=== PATIENT | female | born 1990 | race Caucasian/White ===

== ENCOUNTER 2016-08-27 15:01 | Emergency (ER) | payer BC ==
[~2016-08-27] VITALS: Ht 162.6 cm; Wt 77.2 kg
[~2016-08-27 15:01] MED LIST: ADDE20 PO; AMIT10 PO; ASPITAB PO; DONE10TA7 PO; FOLI1TAB6; FOLI5CAP; GABA300C5 PO; MELO15; MOBI15TA PO; NAPR-576 PO; NAPR500T PO; PROP20TA3 PO; SEASTAB2 PO; TOPA100T11 PO; TOPI25CA PO; VITA250L PO; [UNRECOGNIZED DRUG - CODE] SL
[2016-08-27 15:03] VITALS: BP 126/75; PULSE 99; RESP 18; TEMP 97.9; O2SAT 99
[2016-08-27 16:37] VITALS: BP 125/72; PULSE 90; RESP 18; O2SAT 100
[2016-08-27] MEDS ORDERED: SODIUM CHLOR 0.9% 1000 ML INJ 1,000 ML IV SCH (16:51)
--- NOTE | 2016-08-27 16:53 | PD ---
HPI Chief Complaint: Abdominal Pain Time Seen by Provider: 16:47 Travel History International Travel<30 days: No Contact w/Intl Traveler<30days: No Traveled to known affect area: No History of Present Illness HPI 26 year old female presents for evaluation of abdominal pain. Symptoms started 10 days ago. The pain is a sharp stabbing pain that started in the periumbilical region, now feels generalized. Aggravated by eating and drinking. No alleviating factors. She has had some nausea. She reports 3 days ago she had some bright red blood per rectum when wiping after having a bowel movement. Denies any fevers or chills, flank pain, dysuria, vaginal bleeding or discharge. She has a history of cholecystectomy. She was seen today at an urgent care center and referred here for further evaluation. No other complaints. PFSH Past Medical History Asthma: Yes Depression: Yes Cancer: No Cardiovascular Problems: Yes Diabetes: No Endocrine: No Genitourinary: No Hepatitis: No Hiatal Hernia: No Immune Disorder: No Musculoskeletal: No Neurologic: Yes (POSIBLE MS) Psychiatric: No Reproductive: No Respiratory: No Immunizations Current: No Migraines: Yes Seizures: Yes (EPILEPSY) Thyroid Disease: No ?: Not LMP: 04/27/16 Past Surgical History Abdominal Surgery: No AICD: No Cardiac Surgery: No Section: Yes Cholecystectomy: Yes Ear Surgery: No Endocrine Surgery: No Eye Surgery: No Gynecologic Surgery: Yes Joint Replacement: No Oral Surgery: Yes (WISDOMS TEETH) Pacemaker: No Thoracic Surgery: No Other Surgery: Yes (BLADDER) Social History Alcohol Use: No Tobacco Use: No Substance Use: No Allergies-Medications (Allergen,Severity, Reaction): Coded Allergies: Dilantin (Verified Allergy, Severe, RASH, 08/27/16) Trileptal (Verified Allergy, Severe, RASH, 08/27/16) Ambien (Verified Allergy, Mild, 08/27/16) Reported Meds & Prescriptions Reported Meds & Active Scripts Active Phenergan (Promethazine HCl) 25 Mg Tablet 25 Mg PO Q6H PRN Bentyl (Dicyclomine HCl) 10 Mg Cap 10 Mg PO TID PRN Reported Adderall (Amphetamine-Dextroamphetamine) 20 Mg Tab 20 Mg PO BID Avoid late evening doses. Space doses at least 4 to 6 hours if more than once/day dosing. Donepezil 10 Mg Tab 10 Mg PO HS Propranolol (Propranolol HCl) 20 Mg Tab 20 Mg PO DAILY Topamax (Topiramate) 100 Mg Tab 100 Mg PO DAILY Mobic (Meloxicam) 15 Mg Tab 15 Mg PO DAILY Folic Acid 1 Mg Tablet B-12 Microlozenge (Cyanocobalamin) 500 Mcg Subl 500 Mcg SL DAILY Naproxen 500 Mg Tab 500 Mg PO BID Gabapentin 300 Mg Cap 300 Mg PO TID Review of Systems Except as stated in HPI: all other systems reviewed are Neg Physical Exam Narrative GENERAL: Well-developed well-nourished female in no acute distress SKIN: Warm and dry. HEAD: Atraumatic. Normocephalic. EYES: Pupils equal and round. No scleral icterus. No injection or drainage. ENT: No nasal bleeding or discharge. Mucous membranes pink and moist. NECK: Trachea midline. No JVD. CARDIOVASCULAR: Regular rate and rhythm. No murmur appreciated. RESPIRATORY: No accessory muscle use. Clear to auscultation. Breath sounds equal bilaterally. GASTROINTESTINAL: Abdomen soft, generalized tenderness to palpation without guarding. MUSCULOSKELETAL: No obvious deformities. NEUROLOGICAL: Awake and alert. No obvious cranial nerve deficits. Motor grossly within normal limits. Normal speech. Data Data Last Documented VS Vital Signs Date Time Temp Pulse Resp B/P Pulse Ox O2 Delivery O2 Flow Rate FiO2 08/27/16 16:37 90 18 125/72 100 Room Air 08/27/16 15:03 97.9 Orders Urinalysis - C+S If Indicated (08/27/16 16:19) Ed Urine Pregnancytest Poc (08/27/16 16:19) Complete Blood Count With Diff (08/27/16 16:51) Comprehensive Metabolic Panel (08/27/16 16:51) Lipase (08/27/16 16:51) Ct Abd/Pel W Iv Contrast(Rout) (08/27/16 16:51) Morphine Inj (Morphine Inj) (08/27/16 17:00) Ondansetron Inj (Zofran Inj) (08/27/16 17:00) Sodium Chlor 0.9% 1000 Ml Inj (Ns 1000 M (08/27/16 16:51) Iohexol 350 Inj (Omnipaque 350 Inj) (08/27/16 19:06) Dicyclomine Inj (Bentyl Inj) (08/27/16 19:30) Morphine Inj (Morphine Inj) (08/27/16 19:30) Al-Mag Hy-Si 40-40-4 Mg/Ml Liq (Mag-Al P (08/27/16 19:45) Lidocaine 2% Viscous (Xylocaine 2% Visco (08/27/16 19:45) Pantoprazole (Protonix) (08/27/16 19:45) Labs Laboratory Tests Test 08/27/16 08/27/16 16:18 17:30 Urine Color LIGHT-YELLOW Urine Turbidity CLEAR Urine pH 7.0 Urine Specific [place] 1.009 Urine Protein NEG mg/dL Urine Glucose (UA) NEG mg/dL Urine Ketones NEG mg/dL Urine Occult Blood NEG Urine Nitrite NEG Urine Bilirubin NEG Urine Urobilinogen LESS THAN 2.0 MG/DL Urine Leukocyte Esterase NEG Urine WBC 1 /hpf Urine Squamous Epithelial 1 /hpf Cells Urine Bacteria RARE /hpf Microscopic Urinalysis Comment CULT NOT INDICATED White Blood Count 9.6 TH/MM3 Red Blood Count 4.87 MIL/MM3 Hemoglobin 14.0 GM/DL Hematocrit 42.5 % Mean Corpuscular Volume 87.4 FL Mean Corpuscular Hemoglobin 28.8 PG Mean Corpuscular Hemoglobin 32.9 % Concent Red Cell Distribution Width 13.0 % Platelet Count 216 TH/MM3 Mean Platelet Volume 7.4 FL Neutrophils (%) (Auto) 45.2 % Lymphocytes (%) (Auto) 47.7 % Monocytes (%) (Auto) 5.1 % Eosinophils (%) (Auto) 1.4 % Basophils (%) (Auto) 0.6 % Neutrophils # (Auto) 4.3 TH/MM3 Lymphocytes # (Auto) 4.6 TH/MM3 Monocytes # (Auto) 0.5 TH/MM3 Eosinophils # (Auto) 0.1 TH/MM3 Basophils # (Auto) 0.1 TH/MM3 CBC Comment DIFF FINAL Differential Comment Sodium Level 141 MEQ/L Potassium Level 3.5 MEQ/L Chloride Level 106 MEQ/L Carbon Dioxide Level 28.4 MEQ/L Anion Gap 7 MEQ/L Blood Urea Nitrogen 17 MG/DL Creatinine 0.88 MG/DL Estimat Glomerular Filtration 78 ML/MIN Rate Random Glucose 79 MG/DL Calcium Level 9.7 MG/DL Total Bilirubin 0.3 MG/DL Aspartate Amino Transf 16 U/L (AST/SGOT) Alanine Aminotransferase 21 U/L (ALT/SGPT) Alkaline Phosphatase 98 U/L Total Protein 8.1 GM/DL Albumin 3.9 GM/DL Lipase 133 U/L MDM Medical Decision Making Medical Screen Exam Complete: Yes Emergency Medical Condition: Yes Medical Record Reviewed: Yes Differential Diagnosis Diverticulitis, obstruction, pancreatitis, appendicitis, irritable bowel syndrome, constipation Narrative Course 26 year old female with worsening generalized abdominal pain for 10 days, nausea , some constipation. Plan is for basic lab work, urinalysis, CT abdomen and pelvis. She will be given IV morphine and Zofran. The patient's laboratory imaging studies have been reviewed and found to be unremarkable. Etiology of the patient's pain is unknown, there may be a degree of gastritis in relation her pain. She is currently on Zantac. We will switch her from Zantac to omeprazole and also prescribed her Phenergan and Bentyl, recommends outpatient follow-up with banana handler. Diagnosis Primary Impression: Abdominal pain Qualified Code: R10.84 - Generalized abdominal pain Referrals: Gregorio Palacios MD Additional Instructions: Follow-up with a banana handler such as Dr. Palacios. Medication as prescribed. Stay well hydrated well-nourished. Return for any emergent medical conditions. Med/Other Pt SpecificInfo: Prescription(s) given Scripts Omeprazole 40 Mg Cap40 Mg PO DAILY #30 CAP Ref 0 Prov:Sofie Coronado MD 08/27/16 Promethazine (Phenergan)25 Mg [id number] Mg PO Q6H PRN (NAUSEA OR VOMITING) #20 TAB Ref 0 Prov:Sofie Coronado MD 08/27/16 Dicyclomine (Bentyl)10 Mg Cap10 Mg PO TID PRN (PAIN SCALE 6 TO 10) #20 CAP Ref 0 Prov:Sofie Coronado MD 08/27/16 Disposition: 01 DISCHARGE HOME Condition: Stable Oliver Castrejon Aug 27, 2016 16:53
[2016-08-27] MEDS ORDERED: MORPHINE SULFATE 4 MG/ML INJ IV PUSH ONE ×2 (17:00→19:30)
[2016-08-27] MEDS ORDERED: ONDANSETRON HCL 4 MG/2 ML VIAL IVP ONE (17:00)
[2016-08-27 17:06] LABS: BACTERIA, URINE RARE /hpf; BLOOD, URINE NEG (NEG); GLUCOSE,URINE NEG (NEG); KETONE, URINE NEG (NEG); NITRITE,URINE NEG (NEG); SQUAMOUS EPITHELIAL CELL URINE 1 /hpf (0-5); URINE COLOR LIGHT-YELLOW (YELLW/STRAW)
[2016-08-27 17:10] LABS: COMMENT (UR) CULT NOT INDICATED; CULTURE IF INDICATED CULT NOT INDICATED
[2016-08-27 18:01] LABS: AUTOMATED NEUTROPHIL # 4.3 TH/MM3 (1.8-7.7); BASOPHIL # 0.1 TH/MM3 (0-0.2); BASOPHIL % 0.6 % (0.0-2.0); EOSINOPHIL # 0.1 TH/MM3 (0-0.4); EOSINOPHIL % 1.4 % (0.0-4.0); HEMATOCRIT 42.5 % (35.0-46.0); HEMO FLAGS DIFF FINAL; LYMPH % 47.7 % (9.0-44.0); LYMPHOCYTE # 4.6 TH/MM3 (1.0-4.8); MEAN CELL VOLUME 87.4 FL (80.0-100.0); MEAN CORPUSCULAR HEMOGLOBIN 28.8 PG (27.0-34.0); MEAN CORPUSCULAR HGB CONC 32.9 % (32.0-36.0); MONO % 5.1 % (0.0-8.0); NEUT % 45.2 % (16.0-70.0); PLATELET COUNT 216 TH/MM3 (150-450); RED BLOOD COUNT 4.87 MIL/MM3 (4.00-5.30); WHITE BLOOD COUNT 9.6 TH/MM3 (4.0-11.0)
[2016-08-27 18:32] LABS: ALT (GPT) 21 U/L (10-53); ANION GAP 7 MEQ/L (5-15); AST (GOT) 16 U/L (15-37); BICARBONATE 28.4 MEQ/L (21.0-32.0); BLOOD UREA NITROGEN 17 MG/DL (7-18); CHLORIDE 106 MEQ/L (98-107); GLOMERULAR FILTRATION RATE 78 ML/MIN (>89); POTASSIUM 3.5 MEQ/L (3.5-5.1); SODIUM (NA) 141 MEQ/L (136-145)
[2016-08-27 18:34] LABS: ALKALINE PHOSPHATASE 98 U/L (45-117); TOTAL BILIRUBIN ADULT 0.3 MG/DL (0.2-1.0)
[2016-08-27] MEDS ORDERED: IOHEXOL 350 MG/ML 10 ML VIAL (for RAD DIAG) IV ONE (19:06)
[2016-08-27] MEDS ORDERED: DICYCLOMINE HCL 20 MG/2 ML VIAL IM ONE (19:30)
--- NOTE | 2016-08-27 19:30 | RADRPT ---
EXAM DATE/TIME: 08/27/2016 18:49 [facility] COMPARISON: No previous studies available for comparison. INDICATIONS : Evaluation of abdominal pain with nausea. IV CONTRAST: 96 cc Omnipaque 350 (iohexol) IV ORAL CONTRAST: No oral contrast ingested. RADIATION DOSE: 10.11 CTDIvol (mGy) MEDICAL HISTORY : Seizures. SURGICAL HISTORY : Bladder adherence removal/ ENCOUNTER: Initial ACUITY: 2 weeks PAIN SCALE: 7/10 LOCATION: Bilateral lower quadrant TECHNIQUE: Volumetric scanning of the abdomen and pelvis was performed. Using automated exposure control and ad justment of the mA and/or kV according to patient size, radiation dose was kept as low as reasonably achievable to obtain optimal diagnostic quality images. FINDINGS: LOWER LUNGS: The visualized lower lungs are clear. LIVER: Homogeneous density without lesion. There is no dilation of the biliary tree. Previous cholecystecto my. SPLEEN: Normal size without lesion. PANCREAS: Within normal limits. KIDNEYS: Normal in size and shape. There is no mass, stone or hydronephrosis. ADRENAL GLANDS: Within normal limits. VASCULAR: There is no aortic aneurysm. BOWEL/MESENTERY: The stomach, small bowel, and colon demonstrate no acute abnormality. There is no free intraperitone al air or fluid. Normal appendix. ABDOMINAL WALL: Within normal limits. RETROPERITONEUM: There is no lymphadenopathy. BLADDER: No wall thickening or mass. REPRODUCTIVE: Several cysts measuring up to 1 cm in size seen in the left ovary. INGUINAL: There is no lymphadenopathy or hernia. MUSCULOSKELETAL: Within normal limits for patient age. CONCLUSION: Within normal limits for age. Chris Bloom MD on August 27, 2016 at 19:26 Board Certified Radiologist. This report was verified electronically.
[2016-08-27] MEDS ORDERED: PROM25TA10 PO (19:35)
[2016-08-27] MEDS ORDERED: DICY10 PO (19:35)
[2016-08-27] MEDS ORDERED: OMEP40CA2 PO (19:38)
[2016-08-27] MEDS ORDERED: ALUMINUM/MAGNESIUM/SIMETH 30 ML CUP PO ONE (19:45)
[2016-08-27] MEDS ORDERED: LIDOCAINE VISCOUS 2% SOLN 15 ML UDC PO ONE (19:45)
[2016-08-27] MEDS ORDERED: PANTOPRAZOLE SOD 20 MG DELAYED RELEASE TAB PO ONE (19:45)
[2016-08-27 20:02] VITALS: BP 116/71
--- NOTE | 2016-08-27 21:12 | PD ---
Data Data Last Documented VS Vital Signs Date Time Temp Pulse Resp B/P Pulse Ox O2 Delivery O2 Flow Rate FiO2 08/27/16 20:02 78 16 116/71 98 08/27/16 16:37 Room Air 08/27/16 15:03 97.9 Orders Urinalysis - C+S If Indicated (08/27/16 16:19) Ed Urine Pregnancytest Poc (08/27/16 16:19) Complete Blood Count With Diff (08/27/16 16:51) Comprehensive Metabolic Panel (08/27/16 16:51) Lipase (08/27/16 16:51) Ct Abd/Pel W Iv Contrast(Rout) (08/27/16 16:51) Morphine Inj (Morphine Inj) (08/27/16 17:00) Ondansetron Inj (Zofran Inj) (08/27/16 17:00) Sodium Chlor 0.9% 1000 Ml Inj (Ns 1000 M (08/27/16 16:51) Iohexol 350 Inj (Omnipaque 350 Inj) (08/27/16 19:06) Dicyclomine Inj (Bentyl Inj) (08/27/16 19:30) Morphine Inj (Morphine Inj) (08/27/16 19:30) Al-Mag Hy-Si 40-40-4 Mg/Ml Liq (Mag-Al P (08/27/16 19:45) Lidocaine 2% Viscous (Xylocaine 2% Visco (08/27/16 19:45) Pantoprazole (Protonix) (08/27/16 19:45) Labs Laboratory Tests Test 08/27/16 08/27/16 16:18 17:30 Urine Color LIGHT-YELLOW Urine Turbidity CLEAR Urine pH 7.0 Urine Specific [place] 1.009 Urine Protein NEG mg/dL Urine Glucose (UA) NEG mg/dL Urine Ketones NEG mg/dL Urine Occult Blood NEG Urine Nitrite NEG Urine Bilirubin NEG Urine Urobilinogen LESS THAN 2.0 MG/DL Urine Leukocyte Esterase NEG Urine WBC 1 /hpf Urine Squamous Epithelial 1 /hpf Cells Urine Bacteria RARE /hpf Microscopic Urinalysis Comment CULT NOT INDICATED White Blood Count 9.6 TH/MM3 Red Blood Count 4.87 MIL/MM3 Hemoglobin 14.0 GM/DL Hematocrit 42.5 % Mean Corpuscular Volume 87.4 FL Mean Corpuscular Hemoglobin 28.8 PG Mean Corpuscular Hemoglobin 32.9 % Concent Red Cell Distribution Width 13.0 % Platelet Count 216 TH/MM3 Mean Platelet Volume 7.4 FL Neutrophils (%) (Auto) 45.2 % Lymphocytes (%) (Auto) 47.7 % Monocytes (%) (Auto) 5.1 % Eosinophils (%) (Auto) 1.4 % Basophils (%) (Auto) 0.6 % Neutrophils # (Auto) 4.3 TH/MM3 Lymphocytes # (Auto) 4.6 TH/MM3 Monocytes # (Auto) 0.5 TH/MM3 Eosinophils # (Auto) 0.1 TH/MM3 Basophils # (Auto) 0.1 TH/MM3 CBC Comment DIFF FINAL Differential Comment Sodium Level 141 MEQ/L Potassium Level 3.5 MEQ/L Chloride Level 106 MEQ/L Carbon Dioxide Level 28.4 MEQ/L Anion Gap 7 MEQ/L Blood Urea Nitrogen 17 MG/DL Creatinine 0.88 MG/DL Estimat Glomerular Filtration 78 ML/MIN Rate Random Glucose 79 MG/DL Calcium Level 9.7 MG/DL Total Bilirubin 0.3 MG/DL Aspartate Amino Transf 16 U/L (AST/SGOT) Alanine Aminotransferase 21 U/L (ALT/SGPT) Alkaline Phosphatase 98 U/L Total Protein 8.1 GM/DL Albumin 3.9 GM/DL Lipase 133 U/L MDM Supervised Visit with SERGIO: Yes Narrative Course The history, exam, and medical decision-making in the associated midlevel provider note were completed with my assistance. I reviewed and agree with the findings presented. I attest that I had a [id number] encounter with the patient on the same day, and personally performed and documented my assessment and findings in the medical record. *My assessment and Findings: This is a 26-year-old female who presents to the emergency department with abdominal discomfort that's been going on for 10 days. She is mostly in the epigastrium. Labs were obtained which were reassuring and CT abdomen and pelvis was unremarkable. Patient likely has gastritis or peptic ulcer disease. She was referred to a powertrain design engineer and discharged on a PPI. I don't think she has an acute surgical etiology of her symptoms. Diagnosis Primary Impression: Abdominal pain Qualified Code: R10.84 - Generalized abdominal pain Referrals: Gregorio Palacios MD Patient Instructions: General Instructions, Chronic Abdominal Pain (ED) Departure Forms: Tests/Procedures Additional Instruction: Follow-up with a powertrain design engineer such as Dr. Palacios. Medication as prescribed. Stay well hydrated well-nourished. Return for any emergent medical conditions. Scripts Omeprazole 40 Mg Cap40 Mg PO DAILY #30 CAP Ref 0 Prov:Sofie Coronado MD 08/27/16 Promethazine (Phenergan)25 Mg [id number] Mg PO Q6H PRN (NAUSEA OR VOMITING) #20 TAB Ref 0 Prov:Sofie Coronado MD 08/27/16 Dicyclomine (Bentyl)10 Mg Cap10 Mg PO TID PRN (PAIN SCALE 6 TO 10) #20 CAP Ref 0 Prov:Sofie Coronado MD 08/27/16 Disposition: 01 DISCHARGE HOME Condition: Stable Sofie Coronado MD Aug 27, 2016 21:12
== END 2016-08-27 20:12 | disposition home or self-care (01) ==
LOC: NEPD 15:01
DX: R10.84 Generalized abdominal pain (principal); R11.0 Nausea; K59.00 Constipation, unspecified; K62.5 Hemorrhage of anus and rectum; Z87.09 Personal history of other diseases of the respiratory system; Z86.59 Personal history of other mental and behavioral disorders; Z86.79 Personal history of other diseases of the circulatory system; Z86.69 Personal history of other diseases of the nervous system and sense organs
CPT/HCPCS: 74177; 80053; 81001; 83690; 84703; 85025; 96361; 96372; 96374; 96375; 96376; 99285; J0500; J2270; J2405; J7030; Q9967

== ENCOUNTER 2017-06-19 11:17 | Emergency (ER) | payer BC, MEDICAID ==
[~2017-06-19 11:17] MED LIST changes: -AMIT10 PO; -ASPITAB PO; +DICY10 PO; -FOLI5CAP; -MELO15; -NAPR-576 PO; -NAPR500T PO; +NAPR500T2 PO; +OMEP40CA2 PO; +PROM25TA10 PO; -SEASTAB2 PO; -TOPA100T11 PO; +TOPI100 PO; -TOPI25CA PO; -VITA250L PO
[2017-06-19 11:36] VITALS: BP 147/89; PULSE 87; RESP 16; TEMP 97.4; O2SAT 100
== END 2017-06-19 16:04 | disposition left against medical advice (07) ==
LOC: NEPD 11:17
DX: R51 Headache (principal); R20.0 Anesthesia of skin; Z53.21 Procedure and treatment not carried out due to patient leaving prior to being seen by health care provider
CPT/HCPCS: 99281